=== PATIENT | female | born 1960 | race Two or more races ===

== ENCOUNTER → 2016-10-09 | Outpatient (CLI) | payer MEDICARE ==
--- NOTE | 2016-10-09 12:48 | RADIOLOGY REPORT (SQ) ---
EXAM DESCRIPTION: U/S THYROID/SFT TISS HD NECK COMPLETED DATE/TIME: 10/09/2016 11:18 am REASON FOR STUDY: HYPOTHYROIDSM E03.9 HYPOTHYROIDISM, UNSPECIFIED COMPARISON: None. TECHNIQUE: Dynamic and static mcdowell-scale images acquired of the thyroid gland. Selected additional c olor/power Doppler images recorded. All images stored to PACS. LIMITATIONS: None. FINDINGS: RIGHT LOBE: Normal size. The gland is heterogeneous. No cystic or solid masses. LEFT LOBE: Normal size. The gland is heterogeneous. No cystic or solid masses. ISTHMUS: Normal size. Homogeneous echotexture. No cystic or solid masses. OTHER: No other significant finding. IMPRESSION: Heterogeneous echotexture in the right and left lobes. No dominant masses. TECHNICAL DOCUMENTATION: JOB ID: [id number] [employer]- All Rights Reserved
== END ==
LOC: RAD 10:01
PROVIDERS: ATTEND Nurse Practitioner
DX: E03.9 Hypothyroidism, unspecified (principal)
CPT/HCPCS: 76536

== ENCOUNTER → 2017-01-15 | Outpatient (CLI) | payer MEDICARE ==
[2017-01-15 12:11] LABS: APPEARANCE,URINE CLEAR; BILIRUBIN,URINE NEGATIVE (NEGATIVE); GLUCOSE, URINE NEGATIVE (NEGATIVE); KETONES,URINE NEGATIVE (NEGATIVE); LEUKOCYTE ESTERASE,URINE NEGATIVE (NEGATIVE); NITRITE,URINE NEGATIVE (NEGATIVE); PROTEIN,URINE NEGATIVE (NEGATIVE); UROBILINOGEN,URINE NEGATIVE mg/dL (<2.0)
[2017-01-15 12:18] LABS: ABSOLUTE EOSINOPHILS # (AUTO) 0.2 10^3/uL (0.0-0.6); ABSOLUTE LYMPHOCYTES (AUTO) 1.8 10^3/uL (0.5-4.7); ABSOLUTE MONOCYTES (AUTO) 0.4 10^3/uL (0.1-1.4); ABSOLUTE NEUT (AUTO) 2.1 10^3/uL (1.7-8.2); BASOPHILS % (AUTO) 0.8 % (0-2); EOSINOPHILS % (AUTO) 3.5 % (0-6); HEMATOCRIT 36.3 % (36.0-47.0); HEMOGLOBIN 12.3 g/dL (12.0-15.5); HGB HCT DIFFERENCE 0.6; LYMPHOCYTES % (AUTO) 39.9 % (13-45); MEAN CORPUSCULAR HEMOGLOBIN 31.3 pg (27.0-33.4); MEAN CORPUSCULAR HGB CONC 33.8 g/dL (32.0-36.0); MEAN CORPUSCULAR VOLUME 93 fl (80-97); MONOCYTES % (AUTO) 9.7 % (3-13); RED BLOOD COUNT 3.92 10^6/uL (3.72-5.28); RED CELL DISTRIBUTION WIDTH 13.2 % (11.5-14.0); SEGMENTED NEUTROPHILS % (AUTO) 46.1 % (42-78); WHITE BLOOD COUNT 4.5 10^3/uL (4.0-10.5)
[2017-01-15 12:23] LABS: PARTIAL THROMBOPLASTIN TIME 29.8 SEC (23.5-35.8)
== END ==
LOC: OD 10:41
PROVIDERS: ATTEND Pain Medicine Interventional Pain Medicine
DX: Z51.81 Encounter for therapeutic drug level monitoring (principal); Z79.01 Long term (current) use of anticoagulants
CPT/HCPCS: 36415; 81001; 85025; 85610; 85730

== ENCOUNTER 2017-02-20 08:33 | Day surgery (SDC) | payer MEDICARE ==
--- NOTE | 2017-02-15 12:05 | RADIOLOGY REPORT (SQ) ---
EXAM DESCRIPTION: CHEST PA/LATERAL COMPLETED DATE/TIME: 02/15/2017 11:39 am REASON FOR STUDY: PRE OP COMPARISON: None. EXAM PARAMETERS: NUMBER OF VIEWS: two views TECHNIQUE: Digital Frontal and Lateral radiographic views of the chest acquired. RADIATION DOSE: NA LIMITATIONS: none FINDINGS: LUNGS AND PLEURA: No opacities, masses or pneumothorax. No pleural effusion. MEDIASTINUM AND HILAR STRUCTURES: No masses or contour abnormalities. HEART AND VASCULAR STRUCTURES: Heart normal size. No evidence for failure. BONES: No acute findings. HARDWARE: None in the chest. OTHER: No other significant finding. IMPRESSION: NO SIGNIFICANT RADIOGRAPHIC FINDING IN THE CHEST. TECHNICAL DOCUMENTATION: JOB ID: [id number] [employer]- All Rights Reserved
[2017-02-15 12:25] LABS: APPEARANCE,URINE SLIGHTLY-CLOUDY; BILIRUBIN,URINE NEGATIVE (NEGATIVE); GLUCOSE, URINE NEGATIVE (NEGATIVE); KETONES,URINE NEGATIVE (NEGATIVE); LEUKOCYTE ESTERASE,URINE TRACE (NEGATIVE); NITRITE,URINE NEGATIVE (NEGATIVE); PROTEIN,URINE NEGATIVE (NEGATIVE)
[2017-02-15 12:34] LABS: HEMOGLOBIN 13.5 g/dL (12.0-15.5); HGB HCT DIFFERENCE 1.5; MEAN CORPUSCULAR HEMOGLOBIN 31.5 pg (27.0-33.4); MEAN CORPUSCULAR HGB CONC 34.6 g/dL (32.0-36.0); MEAN CORPUSCULAR VOLUME 91 fl (80-97); RED BLOOD COUNT 4.28 10^6/uL (3.72-5.28); RED CELL DISTRIBUTION WIDTH 13.2 % (11.5-14.0); WHITE BLOOD COUNT 5.5 10^3/uL (4.0-10.5)
[2017-02-15 12:41] LABS: PROTHROMBIN TIME 13.1 SEC (11.4-15.4)
[2017-02-15 12:42] LABS: PARTIAL THROMBOPLASTIN TIME 31.6 SEC (23.5-35.8)
[2017-02-15 12:57] LABS: ANION GAP 6 (5-19); BLOOD UREA NITROGEN 12 mg/dL (7-20); CALCIUM 9.6 mg/dL (8.4-10.2); CARBON DIOXIDE 31 mmol/L (22-30); CHLORIDE 104 mmol/L (98-107); CREATININE RESULT 0.54 mg/dL (0.52-1.25); GLUCOSE 89 mg/dL (75-110); POTASSIUM 4.1 mmol/L (3.6-5.0); SODIUM 140.6 mmol/L (137-145)
--- NOTE | 2017-02-15 19:47 | EKG REPORT ---
SEVERITY:- NORMAL ECG - SINUS RHYTHM : Confirmed by: Joshua Feliciano MD 15-Feb-2017 19:46:25
[~2017-02-20 08:33] MED LIST: CEFAZOLIN 1 GM/D5W RTU 1 GM/50 ML RTUPB IV PRN; LACTATED RINGERS 1000 ML IV PRN; LIDOCAINE 0.5% INJ-PF (5 MG/ML) 50 ML SDV SUBCUT PRN
[2017-02-20] MEDS ORDERED: BUPIVACAINE HCL 0.25% /EPINEPHRINE INJ/PF 30 ML SDV ONE ×2 (09:10→10:54)
[2017-02-20] MEDS ORDERED: LIDOCAINE 1% INJ-PF (10 MG/ML) 30 ML SDV ONE (09:10)
[2017-02-20] MEDS ORDERED: LIDOCAINE 2% INJ-PF (20 MG/ML) 10 ML AMPUL ONE (10:52)
[2017-02-20] MEDS ORDERED: KETAMINE HCL INJ 500 MG/10 ML VIAL ONE (10:52)
[2017-02-20] MEDS ORDERED: FENTANYL CITRATE INJ/PF 100 MCG/2 ML AMPUL ONE ×2 (10:52)
[2017-02-20] MEDS ORDERED: MIDAZOLAM 2 MG/2 ML INJ ONE (10:53)
[2017-02-20] MEDS ORDERED: PROPOFOL INJ 200 MG/20 ML VIAL IV ONE (10:53)
[2017-02-20] MEDS ORDERED: ONDANSETRON HCL INJ/PF 4 MG/2 ML SDV ONE (10:53)
[2017-02-20] MEDS ORDERED: ACETAMINOPHEN 100 ML IV ONE (10:53)
[2017-02-20] MEDS ORDERED: SODIUM BICARBONATE 8.4% INJ 50 MEQ/50 ML DISP.SYRIN ONE (10:59)
[2017-02-20] MEDS ORDERED: OXYCODONE-ACETAMINOPHEN 5-325 MG TABLET PO PRN ×3 (11:27→12:50)
[2017-02-20] MEDS ORDERED: ONDANSETRON HCL INJ/PF 4 MG/2 ML SDV IV PRN (11:27)
[2017-02-20] MEDS ORDERED: MORPHINE SULFATE 10 MG/ML INJ IV PRN (11:27)
[2017-02-20] MEDS ORDERED: FENTANYL CITRATE INJ/PF 100 MCG/2 ML AMPUL IV PRN ×3 (11:27)
[2017-02-20] MEDS ORDERED: DIPHENHYDRAMINE HCL 50 MG/ML VIAL IV PRN (11:27)
[2017-02-20] MEDS ORDERED: PROMETHAZINE HCL INJ 25 MG/1 ML VIAL IV PRN ×2 (11:27)
[2017-02-20] MEDS ORDERED: MEPERIDINE HCL/PF INJ 25 MG/1 ML DISP.SYRIN IV PRN (11:27)
[2017-02-20] MEDS: FENTANYL CITRATE INJ/PF 100 MCG/2 ML AMPUL ONE ×2 (12:35→12:40)
[2017-02-20] MEDS ORDERED: CEFAZOLIN INJ 1 GM VIAL ONE (12:38)
--- NOTE | 2017-02-20 12:58 | OPERATIVE REPORT E ---
Operative Report NAME: LORA CURTIS : 1960 AGE: 56Y DATE OF SURGERY: 02/20/2017 ROOM: PREOPERATIVE DIAGNOSIS: Lumbar radiculopathy with post laminectomy pain syndrome. POSTOPERATIVE DIAGNOSIS: Lumbar radiculopathy with post laminectomy pain syndrome. PROCEDURE: Spinal cord stimulator implant with impulse pulse generator and dual lead placement. SURGEON: MENDOZA JOSHI M.D. ESTIMATE CLERK: JULIANNA WYNN M.D. ANESTHESIA: MAC. COMPLICATIONS: None. DESCRIPTION OF PROCEDURE: After obtaining informed consent and advising the patient of all the risks and benefits, including serious neurological injury, bleeding, infection, spinal fluid leak, allergic reaction, paralysis, nerve injury, , failure to obtain satisfactory relief, she was taken to the operating room and placed comfortably in the prone position. MAC anesthesia was administered. After application of monitoring, she was then prepped with Chloraprep x2 and then draped. After appropriate waiting and drying time, she was then evaluated under fluoroscopy and adequate space was found at T12-L1. I then evaluated the skin overlooking the premarked buttock incision on the right and the midline was anesthetized with 1% lidocaine followed by 0.25% Marcaine with epinephrine. Beginning at the midline incision, sharp and blunt dissection were performed down to the fascia using a left paramedian approach and a 14-gauge Tuohy needle was placed in the epidural space at T12-L1. Loss of resistance to saline technique was utilized beginning with the first needle on the left. The electrodes were advanced under fluoroscopic guidance at the top of T8, being positioned in the midline. The second lead was then placed to a second needle using the same technique of loss of resistance to saline. Using a right paramedian approach, on the right side, lateral views were taken and initially showed satisfactory placement. Leads were then tested and appropriate stimulation was found with discussion in which the patient was awake. Once again, the leads were then secured using pursestrings with anchors in place. The anchors were then sutured in place. These were removed sequentially and the pursestrings were secured and the anchor was placed and secured as well. While the lead positioning was occurring, Julianna Wynn M.D. was assisting, creating the pocket for the new pulse generator on the right. As soon as the pocket was made, proper hemostasis was confirmed. The skin between the tunneling was then performed using anesthesia 1% lidocaine and a standard tunneling tool. Both incisions were felt to be satisfactory and proper hemostasis was confirmed. The wires were easily placed in the midline, stitched to the pocket, and connected to the pulse generator, which was then tested and appropriate communication was made and screws were secure. All connections were secure. The generator was then placed in the pocket and assessed and found to be satisfactory. The position was again checked via fluoroscopy in both lateral and AP views. The wounds were then copiously irrigated. The areas were then closed with interrupted vertical mattress sutures using 3-0 Vicryl. Kerrie were not used, only tape and Dermabond and skin cement was used in both the midline and right lateral buttock incisions. OpSite dressings were then placed over the Telfa. The patient was taken to the PACU for further postoperative wound care and management and will follow up in clinic tomorrow. DICTATING PHYSICIAN: JULIANNA WYNN M.D. [id number] PHY#: [id number] ID: [id number] JOB#: [id number] ACCT: [id number] cc:JULIANNA WYNN M.D. >
--- NOTE | 2017-02-20 15:24 | RADIOLOGY REPORT (SQ) ---
EXAM DESCRIPTION: THORACOLUMBAR SPINE AP/LAT; NO CHG FLUORO COMPLETED DATE/TIME: 02/20/2017 2:31 pm REASON FOR STUDY: SPINAL STIMULATOR INSERTION ASSISTED WITH C ARM IN OR G89.4 CHRONIC PAIN SYNDROME Z79.01 COMPLIANCE MGR (CURRENT) USE OF ANTICOAGULANTS COMPARISON: None. FLUOROSCOPY TIME: 5.5 minutes 12 digital images saved to PACS. TECHNIQUE: Intra-operative images acquired during surgical procedure to evaluate progress. NUMBER OF IMAGES: Cine fluoroscopic images. LIMITATIONS: None FINDINGS: Intra procedural imaging and fluoro IMPRESSION: Intra procedural imaging and fluoro COMMENT: Quality ID 145: Final reports for procedures using fluoroscopy that document radiation exp osure indices, or exposure time and number of fluorographic images (if radiation exposure indices are not available) Please consult full operative report of the attending physician for description of the procedure. TECHNICAL DOCUMENTATION: JOB ID: [id number] [employer]- All Rights Reserved
--- NOTE | 2017-02-20 15:24 | RADIOLOGY REPORT (SQ) ---
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 FLUOROSCOPY TIME: 5.5 minutes 12 digital images saved to PACS. TECHNIQUE: Intra-operative images acquired during surgical procedure to evaluate progress. NUMBER OF IMAGES: Cine fluoroscopic images. LIMITATIONS: None FINDINGS: Intra procedural imaging and fluoro IMPRESSION: Intra procedural imaging and fluoro COMMENT: Quality ID [id number]: Final reports for procedures using fluoroscopy that document radiation exp osure indices, or exposure time and number of fluorographic images (if radiation exposure indices are not available) Please consult full operative report of the attending physician for description of the procedure. TECHNICAL DOCUMENTATION: JOB ID: [id number] [employer]- All Rights Reserved
[2017-02-20 16:24] VITALS: BP 96/54
== END 2017-02-20 14:20 | disposition home or self-care (01) ==
LOC: OROUT 08:33
PROVIDERS: ATTEND Pain Medicine Interventional Pain Medicine
PROC: 00HU3MZ Insertion of Neurostimulator Lead into Spinal Canal, Percutaneous Approach (ICD-10-PCS; 2017-02-20)
PROC: 0JH70MZ Insertion of Stimulator Generator into Back Subcutaneous Tissue and Fascia, Open Approach (ICD-10-PCS; principal; 2017-02-20 11:00)
DX: G89.4 Chronic pain syndrome (principal); Z79.01 Long term (current) use of anticoagulants; Z79.899 Other long term (current) drug therapy; Z79.891 Long term (current) use of opiate analgesic; E78.5 Hyperlipidemia, unspecified; M51.26 Other intervertebral disc displacement, lumbar region; M47.817 Spondylosis without myelopathy or radiculopathy, lumbosacral region; M54.16 Radiculopathy, lumbar region; M47.896 Other spondylosis, lumbar region; M96.1 Postlaminectomy syndrome, not elsewhere classified; M25.551 Pain in right hip; E03.9 Hypothyroidism, unspecified; M51.36 Other intervertebral disc degeneration, lumbar region; M70.61 Trochanteric bursitis, right hip; M70.62 Trochanteric bursitis, left hip; Z87.891 Personal history of nicotine dependence; Z88.2 Allergy status to sulfonamides; Z91.040 Latex allergy status; Z88.8 Allergy status to other drugs, medicaments and biological substances
CPT/HCPCS: 93005; 36415; 85027; 85610; 85730; 80048; 81001; 71020; 72080; 93010; 63685; 63650; C1820; C1778; C1787; J2250; J3490 ×5; J0690 ×2; J3010; A9270; J2405; J2704; J0131; 300